=== PATIENT | male | born 1990 | race Caucasian/White ===

== ENCOUNTER 2021-11-12 06:05 | Emergency (ER) | payer OTHER ==
[~2021-11-12 06:05] MED LIST: CLEOCIN HCL300 MG PO
[2021-11-12] MEDS ORDERED: IBUPROFEN800 MG PO (06:26)
[2021-11-12] MEDS ORDERED: AMOX TR-K CLV1 EAC4 PO (06:26)
== END 2021-11-12 06:34 | disposition home or self-care (01) ==
LOC: ER1 06:05
DX: K02.9 Dental caries, unspecified (principal); F17.210 Nicotine dependence, cigarettes, uncomplicated
CPT/HCPCS: 99282